=== PATIENT | male | born 1985 | race Caucasian/White ===

== ENCOUNTER 2020-05-31 01:17 | Emergency (ER) | payer SELFPAY ==
[~2020-05-31] VITALS: Ht 172.7 cm; Wt 91.9 kg
== END 2020-05-31 02:37 | disposition home or self-care (01) ==
LOC: ED 01:17
DX: S01.01XA Laceration without foreign body of scalp, initial encounter (principal); W22.8XXA Striking against or struck by other objects, initial encounter; Y93.89 Activity, other specified; Y92.89 Other specified places as the place of occurrence of the external cause; Y99.8 Other external cause status

== ENCOUNTER 2020-06-10 13:32 | Emergency (ER) | payer SELFPAY | END 2020-06-10 14:20 | disposition home or self-care (01) | LOC: ED 13:32 | DX: Z48.02 Encounter for removal of sutures (principal) ==